=== PATIENT | female | born 1995 | race Caucasian/White ===

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

== ENCOUNTER 2020-09-19 19:47 | Emergency (ER) | payer OTHER ==
[~2020-09-19 19:47] MED LIST: BACTRIM DS TAB1 EACH PO; BENTYL10 MG PO; ONDANSETRON ODT4 MG SL; ZOFRAN8 MG PO
[2020-09-19 21:21] LABS: BASOPHIL 0.7 % (0-2); EOSINOPHIL 3.8 % (0-5); HCT 44.4 % (37.0-47.0); HGB 14.5 g/dl (12.5-16.0); LYMPHOCYTE 30.5 % (15-48); MCH 28.8 pg (25.0-31.0); MCHC 32.7 g/dL (32.0-36.0); MCV 88.3 fL (78.0-100.0); MONOCYTE 8.8 % (0-12); MPV 9.7 fL (6.0-9.5); NRBC 0; PLT 319 K/uL (150-400); RBC 5.03 M/uL (4.20-5.40); RDW 11.9 % (11.5-14.0); WBC 8.5 K/uL (4.0-10.5)
[2020-09-19 21:39] LABS: BUN/CREAT RATIO (CALC) 18.3 RATIO; CREATININE 0.6 mg/dL (0.51-0.95); POTASSIUM 4.1 mmol/L (3.5-5.1)
== END 2020-09-19 22:52 | disposition home or self-care (01) ==
LOC: FER 19:47
PROVIDERS: Nurse Practitioner Family
DX: R10.9 Unspecified abdominal pain (principal); Z32.02 Encounter for pregnancy test, result negative; Z90.49 Acquired absence of other specified parts of digestive tract
CPT/HCPCS: 36415; 80048; 84702; 85025; 99284

== ENCOUNTER 2020-10-10 13:22 | Emergency (ER) | payer OTHER ==
[2020-10-10 14:10] LABS: BILIRUBIN NEGATIVE (NEGATIVE); BLOOD 3+ Ery/uL (NEGATIVE); COLOR YELLOW (YELLOW); GLUCOSE (U) NORMAL (NORMAL); LEUKOCYTES NEGATIVE Leu/uL (NEGATIVE); NITRITE NEGATIVE (NEGATIVE); PROTEIN NEGATIVE (NEGATIVE); SPECIFIC GRAVITY 1.025 (1.001-1.030); UROBILINOGEN 0.2 mg/dL (0.2-1.0); pH 6.5 (5.0-9.0)
[2020-10-10 14:21] LABS: CLARITY HAZY (CLEAR)
[2020-10-10 14:23] LABS: URINARY RBC TNTC
[2020-10-10 14:27] LABS: BACTERIA 1+
== END 2020-10-10 15:15 | disposition home or self-care (01) ==
LOC: FER 13:22
PROVIDERS: Emergency Medicine
DX: N92.0 Excessive and frequent menstruation with regular cycle (principal)
CPT/HCPCS: 81001; 99284

== ENCOUNTER 2021-03-19 21:37 | Emergency (ER) | payer OTHER ==
[2021-03-19 22:30] LABS: BASOPHIL 0.8 % (0-2); EOSINOPHIL 3.8 % (0-5); HCT 42.9 % (37.0-47.0); HGB 13.8 g/dl (12.5-16.0); LYMPHOCYTE 36.2 % (15-48); MCH 28.3 pg (25.0-31.0); MCHC 32.2 g/dL (32.0-36.0); MCV 87.9 fL (78.0-100.0); MPV 9.9 fL (6.0-9.5); NEUTROPHIL 52.9 % (41-80); NRBC 0; PLT 320 K/uL (150-400); RBC 4.88 M/uL (4.20-5.40); WBC 8.7 K/uL (4.0-10.5)
[2021-03-19 22:48] LABS: ALBUMIN 3.5 g/dL (3.4-5.0); BILIRUBIN - TOTAL 0.2 mg/dL (0.2-1.0); CREATININE 0.63 mg/dL (0.51-0.95); POTASSIUM 4.7 mmol/L (3.5-5.1); TOTAL PROTEIN 7.5 g/dL (6.4-8.2)
== END 2021-03-20 | disposition home or self-care (01) ==
LOC: FER 21:37
PROVIDERS: Emergency Medicine
DX: R07.89 Other chest pain (principal); N93.9 Abnormal uterine and vaginal bleeding, unspecified
CPT/HCPCS: 36415; 71045; 80053; 84484; 85025; 93005

== ENCOUNTER 2021-07-12 20:54 | Emergency (ER) | payer OTHER ==
[~2021-07-12 20:54] MED LIST changes: +PRENATAL FORMU1 EACH PO
== END 2021-07-13 01:07 | disposition home or self-care (01) ==
LOC: FER 20:54
DX: R07.89 Other chest pain (principal)
CPT/HCPCS: 71046; 93005

== ENCOUNTER 2021-12-28 18:58 | Inpatient (IN) | payer OTHER ==
[~2021-12-28] VITALS: Ht 157.5 cm; Wt 81.6 kg
[2021-12-28 19:28] LABS: BILIRUBIN NEGATIVE (NEGATIVE); BLOOD NEGATIVE Ery/uL (NEGATIVE); CLARITY CLEAR (CLEAR); COLOR YELLOW (YELLOW); GLUCOSE (U) NORMAL (NORMAL); LEUKOCYTES 1+ Leu/uL (NEGATIVE); NITRITE NEGATIVE (NEGATIVE); PROTEIN NEGATIVE (NEGATIVE); SPECIFIC GRAVITY 1.025 (1.001-1.030); pH 6.5 (5.0-9.0)
[2021-12-28 19:40] LABS: URINARY RBC RARE
[2021-12-28 19:41] LABS: BACTERIA 2+
[2021-12-28 20:22] LABS: HCT 41.9 % (37.0-47.0); HGB 13.8 g/dl (12.5-16.0); MCH 27.2 pg (25.0-31.0); MCHC 32.9 g/dL (32.0-36.0); MCV 82.6 fL (78.0-100.0); MPV 10.9 fL (6.0-9.5); RBC 5.07 M/uL (4.20-5.40); RDW 12.6 % (11.5-14.0); WBC 10.2 K/uL (4.0-10.5)
[2021-12-28 21:28] LABS: ALBUMIN 2.7 g/dL (3.4-5.0); BILIRUBIN - TOTAL 0.3 mg/dL (0.2-1.0); CREATININE 0.5 mg/dL (0.51-0.95); GLOBULIN (CALCULATION) 4.2 g/dL; POTASSIUM 3.7 mmol/L (3.5-5.1); TOTAL PROTEIN 6.9 g/dL (6.4-8.2)
[2021-12-28 21:51] LABS: AMPHETAMINES NEGATIVE (NEGATIVE); BARBITURATES NEGATIVE (NEGATIVE); ECSTASY (MDMA) NEGATIVE (NEGATIVE); MARIJUANA (THC) NEGATIVE (NEGATIVE); METHADONE NEGATIVE (NEGATIVE); OPIATES NEGATIVE (NEGATIVE); OXYCODONE NEGATIVE (NEGATIVE)
[2021-12-29 00:31] LABS: HCT 41.7 % (37.0-47.0); HGB 13.8 g/dl (12.5-16.0); MCH 27.5 pg (25.0-31.0); MCHC 33.1 g/dL (32.0-36.0); MCV 83.2 fL (78.0-100.0); MPV 11.1 fL (6.0-9.5); RBC 5.01 M/uL (4.20-5.40); RDW 12.4 % (11.5-14.0)
[2021-12-29 06:37] LABS: HCT 37.3 % (37.0-47.0); HGB 12.4 g/dl (12.5-16.0); MCH 27.4 pg (25.0-31.0); MCHC 33.2 g/dL (32.0-36.0); MCV 82.3 fL (78.0-100.0); RBC 4.53 M/uL (4.20-5.40); RDW 12.3 % (11.5-14.0); WBC 16.2 K/uL (4.0-10.5)
== END 2021-12-30 19:55 | disposition home or self-care (01) | DRG 788 ==
LOC: FOB 18:58 → FOD 18:58 → FOB 20:06
PROVIDERS: ADMIT Specialist
PROC: 10D00Z1 Extraction of Products of Conception, Low, Open Approach (ICD-10-PCS; principal; 2021-12-28 22:15)
DX: O45.93 Premature separation of placenta, unspecified, third trimester (principal); Z37.0 Single live birth; Z3A.37 37 weeks gestation of pregnancy; O24.429 Gestational diabetes mellitus in childbirth, unspecified control; O99.214 Obesity complicating childbirth
CPT/HCPCS: 31500; 36415; 74018; 80053; 80305; 81001; 82009; 86850; 86900; 86901; 90686; J0595; J0690; J1100; J1885; J2210; J2274; J2370; J2405; J2704; J7120